=== PATIENT | male | born 1985 | race Caucasian/White ===

== ENCOUNTER 2017-09-05 14:07 | Emergency (ER) | payer BC, MEDICAID ==
[~2017-09-05] VITALS: Ht 180.3 cm; Wt 88.5 kg
[~2017-09-05 14:07] MED LIST: ADVAIR; ALBU0.632 IH; ALBU17AE23 IH; ALBU17AE3 IH; AZTH250C PO; BUDE0.5A2 IH; CEPH-507 PO; CIPR500T4 PO; CLIN-62 PO; DOXY100C2 PO; HYDR-1231 PO; HYDR-34 PO; HYDR-707 PO; IPRA3AMP19 IH; LEVO500T69 PO; METH4TAB PO; PRD20T PO; PRD50T PO; SILV25CR TP
[2017-09-05] MEDS ORDERED: BUDE10.2 IH (14:19)
[2017-09-05] MEDS ORDERED: TRIM/SULFAMETH 160/800 (SEPTRA DS) TAB PO ONE (15:30)
[2017-09-05] MEDS ORDERED: CEPHALEXIN 250 MG (KEFLEX) CAP PO ONE (15:30)
--- NOTE | 2017-09-05 16:22 | Diagnostic Imaging Report ---
Right knee at 4:28 p.m. INDICATION: Knee pain. Three views were obtained. FINDINGS: There is no fracture, dislocation or acute bony abnormality evident. The knee joint is well maintained. There may be a small joint effusion present. The soft tissues are unremarkable. IMPRESSION: 1. There is no evidence for an acute bony abnormality. 2. If there is clinical concern regarding internal derangement, then MRI would be recommended for further evaluation. Dictated by: Dictated on workstation # [id number]
[2017-09-05] MEDS ORDERED: NAPR-1071 PO (16:29)
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
[2017-09-05 16:34] VITALS: BP 125/87
== END 2017-09-05 16:34 | disposition home or self-care (01) ==
LOC: EDUNIT# 14:07 → ER 14:10
DX: M23.91 Unspecified internal derangement of right knee (principal); J45.909 Unspecified asthma, uncomplicated; Z87.828 Personal history of other (healed) physical injury and trauma
CPT/HCPCS: 73562; 99282

== ENCOUNTER → 2017-09-10 | Outpatient (CLI) | payer MEDICAID ==
[~2017-09-10] MED LIST changes: +BUDE10.2 IH; +NAPR-1071 PO
--- NOTE | 2017-09-10 17:49 | Diagnostic Imaging Report ---
PROCEDURE: MRI right joint lower extremity without contrast. TECHNIQUE: Multiplanar, multisequence non contrast-enhanced MRI of the right lower extremity was accomplished. INDICATION: Injury, knee pain. FINDINGS: There are no previous MRI examinations available for comparison. The recent plain film examination of the right knee performed on 09/05/2017 failed to show any sign of an acute abnormality. On the T2 sagittal ACR images, the anterior cruciate ligament is not visualized. I suspect that the ACL is at least partially if not completely torn. There is also some increased signal within the posterior cruciate ligament near its attachment to the distal femur. There may be a partial tear of the PCL in this area as well. In addition, the posterior horn of the medial meniscus is macerated. The mid portion of the medial meniscus has also been torn and has partially degenerated. There are also tears involving both the anterior and posterior horns of the lateral meniscus. On the coronal STIR images, there is edema about the medial collateral ligament. This would be consistent with a sprain. The MCL itself appears to be intact. The fibular collateral ligament, the biceps femoris tendon, the iliotibial band, and the medial and lateral retinacula are unremarkable for an acute abnormality. The quadriceps and infrapatellar tendons appear to be intact. There is a xxrjsmal-zc-xasip joint effusion present. There are areas of diminished signal in the subarticular regions of both the medial and lateral femoral condyle on the coronal proton dense series. These are probably secondary to long-standing osteochondral injuries. There is no abnormal signal arising from the osseous structures to suggest bone edema related to an acute fracture. IMPRESSION: 1. The poor visualization of the anterior cruciate ligament would indicate that the ACL is at least partially if not completely torn. There is also a small partial tear of the attachment of the posterior cruciate ligament to the distal femur, and there is a grade 1 sprain in the medial collateral ligament. 2. Both menisci are torn. 3. There are long-standing osteochondral injuries involving both femoral condyles, but there is no acute bony abnormality identified. 4. There is a cddexrub-bl-noucz joint effusion. Dictated by: Dictated on workstation # [id number]
== END ==
LOC: RAD 16:18
PROVIDERS: ATTEND Internal Medicine
DX: S83.512A Sprain of anterior cruciate ligament of left knee, initial encounter (principal); S83.521A Sprain of posterior cruciate ligament of right knee, initial encounter; S83.411A Sprain of medial collateral ligament of right knee, initial encounter; S83.281A Other tear of lateral meniscus, current injury, right knee, initial encounter; S83.241A Other tear of medial meniscus, current injury, right knee, initial encounter; S83.31XA Tear of articular cartilage of right knee, current, initial encounter; M25.461 Effusion, right knee
CPT/HCPCS: 73721

== ENCOUNTER 2020-05-28 17:19 | Emergency (ER) | payer MEDICAID ==
[~2020-05-28] VITALS: Ht 180.3 cm; Wt 88.4 kg
[2020-05-28 17:25] VITALS: BP 120/88
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
[2020-05-28] MEDS ORDERED: METH-313 PO (18:12)
== END 2020-05-28 18:20 | disposition home or self-care (01) ==
LOC: EDUNIT# 17:19 → ER 17:21
DX: S00.03XA Contusion of scalp, initial encounter (principal); S30.810A Abrasion of lower back and pelvis, initial encounter; R40.2410 Glasgow coma scale score 13-15, unspecified time; J45.909 Unspecified asthma, uncomplicated; Z80.9 Family history of malignant neoplasm, unspecified; V86.99XA Unspecified occupant of other special all-terrain or other off-road motor vehicle injured in nontraffic accident, initial encounter
CPT/HCPCS: 70450; 72072; 72100; 72125

== ENCOUNTER → 2020-06-07 | Outpatient (CLI) | payer MEDICAID ==
[~2020-06-07] MED LIST changes: +GADOBUTROL 10 MMOL/10 ML (GADAVIST) VIAL IV ONE; +METH-313 PO
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
== END ==
LOC: RAD 15:30
PROVIDERS: ATTEND Internal Medicine
DX: G93.9 Disorder of brain, unspecified (principal)
CPT/HCPCS: 70553

== ENCOUNTER → 2020-09-13 | Outpatient (CLI) | payer MEDICAID ==
[~2020-09-13] VITALS: Ht 180 cm; Wt 90.0 kg
[~2020-09-13] MED LIST changes: +BAMLANIVIMAB (NON FORM) 700 MG in NS (IVPB) 100 ML IV ONE; -CIPR500T4 PO; +CIPR500T5 PO; +EPINEPHrine INJECTION 1 MG/ML AMP IM PRN; -GADOBUTROL 10 MMOL/10 ML (GADAVIST) VIAL IV ONE; +diphenhydrAMINE 50 MG/ML INJ (BENADRYL) IV PRN
[2020-09-13 08:41] VITALS: BP 151/92
[2020-09-13 10:20] VITALS: BP 138/79
== END ==
LOC: INFUSION 08:43
PROVIDERS: ATTEND Internal Medicine
DX: Z23 Encounter for immunization (principal); U07.1 COVID-19

== ENCOUNTER 2023-03-17 21:14 | Observation (INO) | payer OTHER, MEDICAID ==
[~2023-03-17] VITALS: Ht 177 cm; Wt 93.0 kg
[~2023-03-17 21:14] MED LIST changes: -BAMLANIVIMAB (NON FORM) 700 MG in NS (IVPB) 100 ML IV ONE; -EPINEPHrine INJECTION 1 MG/ML AMP IM PRN; -diphenhydrAMINE 50 MG/ML INJ (BENADRYL) IV PRN
[2023-03-17] MEDS ORDERED: ONDANSETRON INJECTION 4 MG/2 ML (SDV) IVP ONE (21:30)
[2023-03-17] MEDS ORDERED: NS IV 1000 ML 1,000 ML IV SCH (21:30)
[2023-03-17] MEDS ORDERED: Tetanus/Diphtheria/Pertussis (Acell) ADULT Vaccine 0.5 ML IM ONE (21:30)
[2023-03-17] MEDS ORDERED: fentaNYL INJECTION 100 MCG/2 ML VIAL IVP ONE (21:30)
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
[2023-03-17 21:41] LABS: HEMATOCRIT 48 % (40-54); HEMOGLOBIN 16.7 g/dL (13.3-17.7); MEAN CORPUSCULAR HEMOGLOBIN 32 pg (25-34); MEAN CORPUSCULAR HGB CONC 35 g/dL (32-36); MEAN CORPUSCULAR VOLUME 90 fL (80-99); MEAN PLATELET VOLUME 9.9 fL (9.0-12.2); PLATELET COUNT 280 10^3/uL (130-400); WHITE BLOOD COUNT 13.6 10^3/uL (4.3-11.0)
[2023-03-17] MEDS ORDERED: IOHEXOL 350 MG/ML 100 ML (OMNIPAQUE 350) VIAL IV ONE (21:45)
[2023-03-17] MEDS ORDERED: HOLD METFORMIN - RECEIVED CONTRAST 20 ML VIAL IV SCH (21:45)
[2023-03-17] MEDS ORDERED: NS 100 ML (IVPB) BAG IV ONE (21:45)
[2023-03-17 21:46] LABS: ALBUMIN 4.2 GM/DL (3.2-4.5); CHLORIDE 104 MMOL/L (98-107); POTASSIUM 3.6 MMOL/L (3.6-5.0); SODIUM 140 MMOL/L (135-145)
[2023-03-17 21:47] LABS: CALCIUM 9.2 MG/DL (8.5-10.1)
[2023-03-17 21:49] LABS: GLUCOSE 116 MG/DL (70-105); TOTAL PROTEIN 6.8 GM/DL (6.4-8.2)
[2023-03-17 21:50] LABS: BILIRUBIN,TOTAL 1.1 MG/DL (0.1-1.0); CARBON DIOXIDE 23 MMOL/L (21-32)
[2023-03-17 21:52] LABS: ALKALINE PHOSPHATASE 118 U/L (40-136); CREATININE SERUM 1.18 MG/DL (0.60-1.30); GFR ESTIMATED 82
[2023-03-17 21:53] LABS: BUN/CREATININE RATIO 12
[2023-03-17 21:55] LABS: ALANINE AMINOTRANSFERASE 58 U/L (0-55); BILIRUBIN,DIRECT 0.3 MG/DL (0.0-0.3); BILIRUBIN,INDIRECT 0.8 MG/DL
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
[2023-03-17] MEDS ORDERED: ceFAZolin INJECTION 2,000 MG in NS (IVPB) 50 ML 50 ML IV ONE (22:30)
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
[2023-03-17] MEDS ORDERED: morphine INJ 4 MG/ML 1 ML (VIAL/SYRINGE) ONE (23:45)
[2023-03-17] MEDS ORDERED: morphine INJ 4 MG/ML 1 ML (VIAL/SYRINGE) IVP ONE (23:45)
[2023-03-18] MEDS ORDERED: LIDOCAINE 2% VISCOUS 15 ML UDC ONE (01:22)
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
[2023-03-18] MEDS ORDERED: LIDOCAINE 2% VISCOUS 15 ML UDC MM ONE (02:30)
[2023-03-18] MEDS ORDERED: morphine INJ 4 MG/ML 1 ML (VIAL/SYRINGE) IVP ONE (02:45)
[2023-03-18] MEDS ORDERED: ONDANSETRON INJECTION 4 MG/2 ML (SDV) IV PRN (04:00)
[2023-03-18] MEDS ORDERED: diphenhydrAMINE INJ 50 MG/ML VIAL IV PRN (04:00)
[2023-03-18] MEDS: fentaNYL INJECTION 100 MCG/2 ML VIAL IVP PRN ×3 (04:05→22:17)
[2023-03-18 04:13] VITALS: BP 98/78
[2023-03-18] MEDS: NS IV 1000 ML 1,000 ML IV SCH ×2 (04:29→14:33)
[2023-03-18] MEDS ORDERED: NS IV 500 ML 500 ML IV PRN (04:30)
[2023-03-18] MEDS ORDERED: RT-ALBUTEROL SULF 2.5 MG/3 ML PRE-MIX VIAL INH PRN (04:30)
[2023-03-18 05:15] LABS: BASOPHILS % (AUTO) 0 % (0-10); EOSINOPHILS % (AUTO) 0 % (0-10); HEMATOCRIT 43 % (40-54); HEMOGLOBIN 14.9 g/dL (13.3-17.7); LYMPHOCYTES # (AUTO) 0.9 10^3/uL (1.0-4.0); LYMPHOCYTES % (AUTO) 5 % (12-44); MEAN CORPUSCULAR HEMOGLOBIN 31 pg (25-34); MEAN CORPUSCULAR HGB CONC 35 g/dL (32-36); MEAN CORPUSCULAR VOLUME 90 fL (80-99); MEAN PLATELET VOLUME 10.3 fL (9.0-12.2); MONOCYTES # (AUTO) 1.3 10^3/uL (0.0-1.0); MONOCYTES % (AUTO) 8 % (0-12); NEUTROPHILS # (AUTO) 13.9 10^3/uL (1.8-7.8); NEUTROPHILS % (AUTO) 86 % (42-75); PLATELET COUNT 218 10^3/uL (130-400); WHITE BLOOD COUNT 16.2 10^3/uL (4.3-11.0)
[2023-03-18 05:28] LABS: ALBUMIN 3.8 GM/DL (3.2-4.5); BILIRUBIN,TOTAL 1.9 MG/DL (0.1-1.0); CALCIUM 8.5 MG/DL (8.5-10.1); CREATININE SERUM 1.13 MG/DL (0.60-1.30); MAGNESIUM 1.5 MG/DL (1.6-2.4); PHOSPHORUS 2.7 MG/DL (2.3-4.7); POTASSIUM 4.3 MMOL/L (3.6-5.0)
[2023-03-18] MEDS: POTASSIUM CL 10MEQ/50ML IVPB 50 ML IV SCH (05:38)
[2023-03-18] MEDS: MAGNESIUM 1 GM/100 ML IVPB 100 ML IV SCH ×5 (05:39→08:38)
[2023-03-18] MEDS: POTASSIUM CHLORIDE 20 MEQ TABLET PO SCH (05:39)
[2023-03-18] MEDS: ceFAZolin 1,000 MG VIAL IV SCH ×3 (06:23→22:04)
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
[2023-03-18] MEDS: morphine INJ 4 MG/ML 1 ML (VIAL/SYRINGE) IV PRN ×2 (07:51→19:56)
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
--- NOTE | 2023-03-18 08:37 | Diagnostic Imaging Report ---
INDICATION: Fractures. 3 view ankle performed FINDINGS: There are fractures of the talus extending intra-articular into the posterior subtalar joint. There appears to be a fracture of the anterior process of the calcaneus. There is avulsion off the lateral cortex of the distal fibula. There is likely an avulsion off the lateral process of the talus. The medial and posterior malleoli intact. The talar dome appeared intact. There is diffuse swelling about the ankle. IMPRESSION: Talar and calcaneal fractures with distal fibular cortical avulsion, soft tissue swelling, no widening of the mortise. Findings have been further evaluated at separately performed ankle CT. Dictated by: Dictated on workstation # [id number]
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
[2023-03-18] MEDS ORDERED: PANTOPRAZOLE INJECTION 40 MG VIAL IV SCH (09:00)
[2023-03-18] MEDS: RT-ALBUTEROL SULF 2.5 MG/3 ML PRE-MIX VIAL INH SCH ×2 (09:10→21:28)
[2023-03-18] MEDS: DOCUSATE SODIUM 100 MG CAPSULE PO SCH ×2 (09:15→22:47)
[2023-03-18] MEDS ORDERED: ACETAMINOPHEN 500 MG TABLET PO PRN (10:15)
[2023-03-18] MEDS ORDERED: BUDE10.26 INH (10:26)
[2023-03-18] MEDS ORDERED: ACET325T38 PO (10:26)
[2023-03-18] MEDS ORDERED: RT-ALBUINH INH (10:26)
[2023-03-18] MEDS ORDERED: CETI10TA49 PO (10:26)
[2023-03-18] MEDS: HYDROcodone/ACETAMINOPHEN 7.5 MG/325 MG TABLET PO PRN (14:02)
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
[2023-03-18] MEDS ORDERED: HYDR-3817 PO (16:47)
--- NOTE | 2023-03-18 16:49 | Discharge Inst-Surgical ---
D/C Lap Instructions-BERNADETTE New, Converted, or Re-Newed RX: RX on Chart Follow Up 2weeks Follow up cxr approximately 1 week. Activity as tolerated No driving for 24 hours No driving while on pain medications Incentive Spirometry use every 2 hours while awake Regular Diet Symptoms to Report: Fever over 101 degree F, Nausea/Vomiting Infection Signs and Symptoms to report: Increased redness, Foul odor of wound, Increased drainage Bathing instructions: May shower Operative Area Clean/Dry; Keep incision clean/dry If any problems/questions: Contact your physician or go to Emergency Room PAPITO FLEMING MD Mar 18, 2023 16:48
[2023-03-18 19:48] VITALS: BP 135/87
[2023-03-19 00:10] VITALS: BP 123/70
[2023-03-19] MEDS: morphine INJ 4 MG/ML 1 ML (VIAL/SYRINGE) IV PRN (00:21)
[2023-03-19] MEDS: RT-ALBUTEROL SULF 2.5 MG/3 ML PRE-MIX VIAL INH SCH ×2 (03:44→09:25)
[2023-03-19 04:15] VITALS: BP 130/81
[2023-03-19] MEDS: HYDROcodone/ACETAMINOPHEN 7.5 MG/325 MG TABLET PO PRN ×3 (04:30→15:18)
[2023-03-19 06:01] LABS: BASOPHILS % (AUTO) 0 % (0-10); EOSINOPHILS # (AUTO) 0.4 10^3/uL (0.0-0.3); EOSINOPHILS % (AUTO) 3 % (0-10); HEMATOCRIT 41 % (40-54); HEMOGLOBIN 14.3 g/dL (13.3-17.7); LYMPHOCYTES # (AUTO) 1.1 10^3/uL (1.0-4.0); LYMPHOCYTES % (AUTO) 9 % (12-44); MEAN CORPUSCULAR HEMOGLOBIN 31 pg (25-34); MEAN CORPUSCULAR HGB CONC 35 g/dL (32-36); MEAN CORPUSCULAR VOLUME 90 fL (80-99); MEAN PLATELET VOLUME 10.2 fL (9.0-12.2); MONOCYTES # (AUTO) 1.1 10^3/uL (0.0-1.0); MONOCYTES % (AUTO) 9 % (0-12); NEUTROPHILS # (AUTO) 9.9 10^3/uL (1.8-7.8); NEUTROPHILS % (AUTO) 79 % (42-75); PLATELET COUNT 175 10^3/uL (130-400); WHITE BLOOD COUNT 12.5 10^3/uL (4.3-11.0)
[2023-03-19 06:12] LABS: ALBUMIN 3.7 GM/DL (3.2-4.5); POTASSIUM 3.8 MMOL/L (3.6-5.0)
[2023-03-19 06:13] LABS: CALCIUM 8.6 MG/DL (8.5-10.1)
[2023-03-19 06:15] LABS: TOTAL PROTEIN 6.1 GM/DL (6.4-8.2)
[2023-03-19 06:17] LABS: BILIRUBIN,TOTAL 2.2 MG/DL (0.1-1.0)
[2023-03-19 06:18] LABS: PHOSPHORUS 2.3 MG/DL (2.3-4.7)
[2023-03-19] MEDS: ceFAZolin 1,000 MG VIAL IV SCH ×2 (06:18→14:15)
[2023-03-19 06:19] LABS: CREATININE SERUM 0.93 MG/DL (0.60-1.30)
[2023-03-19] MEDS: POTASSIUM CL 10MEQ/50ML IVPB 50 ML IV SCH (06:23)
[2023-03-19] MEDS: MAGNESIUM 1 GM/100 ML IVPB 100 ML IV SCH (06:25)
[2023-03-19] MEDS: POTASSIUM CHLORIDE 20 MEQ TABLET PO SCH (06:33)
[2023-03-19] MEDS ORDERED: POTASSIUM CHLORIDE 20 MEQ TABLET PO NR (07:00)
[2023-03-19 07:13] VITALS: BP 131/79
[2023-03-19 07:48] VITALS: BP 180/98
--- NOTE | 2023-03-19 08:03 | Physical Therapy Daily Note ---
PT Daily Note-Current Subjective Patient agrees to PT. Spouse present. Pain Section J - Health Conditions 1. Rarely or not at all 2. Occasionally 3. Frequently 4. Almost constantly 8. Unable to answer Pain Effect on Sleep: 1 Pain Interference with Therapy: 1 Pain Interference w/Day-to-Day: 1 Mental Status Patient Orientation: Normal For Age Transfers SCALE: Activities may be completed with or without assistive devices. 1-Rmqzoqvxjv-owmpsxd completes the activity by him/herself with no assistance from a helper. 5-Set-up or Clean-up Assistance-helper sets up or cleans up; patient completes activity. Galt assists only prior to or following the activity. 4-Supervision or Touching Assistance-helper provides verbal cues and/or touching/steadying and/or contact guard assistance as patient completes activity. Assistance may be provided throughout the activity or intermittently. 3-Partial/Moderate Assistance-helper does LESS THAN HALF the effort. Galt lifts, holds or supports trunk or limbs, but provides less than half the effort. 2-Substantial/Maximal Assistance-helper does MORE THAN HALF the effort. Galt lifts or holds trunk or limbs and provides more than half the effort. 8-Fmezetfqw-ynisxm does ALL the effort. Patient does none of the effort to complete the activity. Or, the assistance of 2 or more helpers is required for the patient to complete the activity. If activity was not attempted, code reason: 7-Patient Refused. 9-Not Applicable-not attempted and the patient did not perform the activity before the current illness, exacerbation or injury. 10-Not Attempted due to Environmental Limitations-(lack of equipment, weather restraints, etc.). 88-Not Attempted due to Medical Conditions or Safety Concerns. Lying to Sitting/Side of Bed(Q: 3 Sit to Stand (QC): 4 Weight Bearing Right Lower Extremity: Right Non Weight Bearing Left Lower Extremity: Left Weight Bearing/Tolerated Gait Training Distance: 180' Walk 10 feet (QC): 4 Walk 50 ft with 2 Turns(QC): 4 Walk 150 ft (QC): 4 Gait Assistive Device: Crutches able to maintain NWB right LE without difficulty Stair Training #of Steps: 1 1 Step (curb) (QC): 4 Stairs: Pattern: Hops with use of crutches Assessment Patient tolerated treatment well. PT to dismiss patient from services at this time. Patient is SBA to modified independent with all mobility safely. Patient reports they will utilize FWW and w/c upon returning to home. 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 Time Frame: Apr 24, 2023 Roll Left & Right (QC): 5 Sit to Lying (QC): 5 Lying-Sitting on Side/Bed(QC): 5 Sit to Stand (QC): 5 Chair/Ifh-hk-Vooio Xfer(QC): 5 Toilet Transfer (QC): 5 Does the Patient Walk: Yes Walk 10 feet (QC): 6 Walk 50ft with 2 Turns (QC): 6 Walk 150 ft (QC): 6 1 Step (curb) (QC): 3 4 Steps (QC): 3 12 Steps (QC): 3 PT Plan Treatment/Plan Treatment Plan: Discontinue PT Treatment Plan: Bed Mobility, Education, Functional Activity Irvin, Functional Strength, Group Therapy, Gait, Safety, Therapeutic Exercise, Transfers Treatment Duration: Apr 24, 2023 Frequency: 6 times per week Patient and/or Family Agrees t: Yes Time Time In: 730 Time Out: 753 DATE: Mar 19, 2023 Total Billed Treatment Time: 23 Total Billed Treatment 1 visit FA 9 min GT 14 min EDISON VASQUES PT Mar 19, 2023 08:02
[2023-03-19] MEDS ORDERED: PANTOPRAZOLE 40 MG TABLET PO SCH (09:00)
[2023-03-19] MEDS: DOCUSATE SODIUM 100 MG CAPSULE PO SCH (09:02)
--- NOTE | 2023-03-19 09:33 | Diagnostic Imaging Report ---
INDICATION: Left rib fractures, follow-up Frontal chest obtained at 0628 a.m. and compared to 03/17/2023. Heart and mediastinal silhouette are normal in appearance. The lungs are clear. There is no pneumothorax or pleural fluid. IMPRESSION: Continued negative chest. Dictated by: Dictated on workstation # [id number]
[2023-03-19 11:04] VITALS: BP 127/78
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
[2023-03-19] MEDS ORDERED: CEPH500T PO (13:27)
== END 2023-03-19 16:40 | disposition home or self-care (01) ==
LOC: EDUNIT# 21:14 → ER 21:17 → ICU 03-18 03:30 → 4TH 03-18 15:26
PROVIDERS: ADMIT Surgery; ATTEND Surgery
DX: S82.001A Unspecified fracture of right patella, initial encounter for closed fracture (principal); S92.141A Displaced dome fracture of right talus, initial encounter for closed fracture; S92.001A Unspecified fracture of right calcaneus, initial encounter for closed fracture; S50.812A Abrasion of left forearm, initial encounter; S60.512A Abrasion of left hand, initial encounter; S80.212A Abrasion, left knee, initial encounter; S80.211A Abrasion, right knee, initial encounter; S22.32XA Fracture of one rib, left side, initial encounter for closed fracture; V29.888A Rider (driver) (passenger) of other motorcycle injured in other specified transport accidents, initial encounter; F17.210 Nicotine dependence, cigarettes, uncomplicated; F12.90 Cannabis use, unspecified, uncomplicated; Y93.55 Activity, bike riding; Z28.310 Unvaccinated for COVID-19
CPT/HCPCS: 29515; 70450; 70498; 71045 ×2; 71260; 73562; 73610; 73630; 73700; 74177; 80048; 80053 ×2; 80076; 83735 ×2; 84100 ×2; 84484 ×2; 85025 ×2; 85027; 86850; 86900; 86901; 87081; 93005; 93041; 94640 ×2; 94664; 94760 ×2; 97116; 97162; 97530 ×2; 99284; G0480; L1830; 36415; 80320; 90715; 96366; 96375; 96376; G0378

== ENCOUNTER → 2023-03-24 | Outpatient (CLI) | payer OTHER, MEDICAID ==
[~2023-03-24] MED LIST changes: +ACET325T38 PO; +BUDE10.26 INH; +CEPH500T PO; +CETI10TA49 PO; +HYDR-3817 PO; +RT-ALBUINH INH
== END ==
LOC: ORTHO 09:31
PROVIDERS: ATTEND Orthopaedic Surgery
DX: S82.001D Unspecified fracture of right patella, subsequent encounter for closed fracture with routine healing (principal); X58.XXXD Exposure to other specified factors, subsequent encounter
CPT/HCPCS: 99213

== ENCOUNTER 2023-03-25 05:32 | Outpatient (CLI) | payer OTHER, MEDICAID ==
[~2023-03-25] VITALS: Ht 180.3 cm; Wt 88.5 kg
== END 2023-03-25 10:36 | disposition home or self-care (01) ==
LOC: PREOP 05:32
PROVIDERS: ATTEND Orthopaedic Surgery
DX: Z01.818 Encounter for other preprocedural examination (principal)

== ENCOUNTER 2023-03-30 09:38 | Day surgery (SDC) | payer OTHER, MEDICAID ==
[~2023-03-30] VITALS: Ht 180 cm; Wt 88.5 kg
[2023-03-30] VITALS (13 sets, daily range): BP systolic 127–142; BP diastolic 81–95
[2023-03-30] MEDS ORDERED: ceFAZolin INJECTION 2,000 MG in NS (IVPB) 50 ML 50 ML IV ONE (10:00)
[2023-03-30] MEDS ORDERED: fentaNYL INJECTION 100 MCG/2 ML VIAL ONE ×2 (10:03→11:32)
[2023-03-30] MEDS ORDERED: MIDAZOLAM INJ 2 MG/2 ML VIAL ONE (10:03)
[2023-03-30] MEDS ORDERED: ROPIVACAINE 5 MG/ML 30ML VIAL ONE (10:04)
[2023-03-30] MEDS ORDERED: LIDOCAINE PF 2% 5 ML VIAL ONE (10:04)
[2023-03-30] MEDS: LACTATED RINGERS 1,000 ML 1,000 ML IV PRN ×3 (10:09→13:31)
--- NOTE | 2023-03-30 10:51 | Progress Note-Pre Operative ---
Pre-Operative Progress Note Date of Available H&P: Mar 24, 2023 Date H&P Reviewed: Mar 30, 2023 Time H&P Reviewed: 10:40 History & Physical: H&P Reviewed, Patient Examed, No changes noted Pre-Operative Diagnosis: Right Patella Fracture EZE GRIMES MD Mar 30, 2023 10:51
[2023-03-30] MEDS ORDERED: dexAMETHasone INJ 10 MG/ML 1 ML VIAL ONE (11:08)
[2023-03-30] MEDS ORDERED: proPOfol INJECTION 200 MG/20 ML VIAL IV ONE (11:08)
[2023-03-30] MEDS ORDERED: ONDANSETRON INJECTION 4 MG/2 ML (SDV) ONE (11:08)
[2023-03-30] MEDS ORDERED: HYDROmorphone INJECTION 2 MG/ML VIAL ONE (12:02)
[2023-03-30] MEDS ORDERED: SEVOFLURANE (ULTANE) 15 ML INHAL SOLN ONE (12:55)
[2023-03-30] MEDS ORDERED: MEPERIDINE INJ 50 MG/ML VIAL ONE (13:02)
--- NOTE | 2023-03-30 13:28 | Anesthesia-General Post-Op ---
General Patient Condition Mental Status/LOC: Same as Preop Cardiovascular: Satisfactory Nausea/Vomiting: Absent Respiratory: Satisfactory Pain: Controlled Complications: Absent Post Op Complications Complications None Follow Up Care/Instructions Patient Instructions None needed. Anesthesia/Patient Condition Patient Condition Patient is doing well, no complaints, stable vital signs, no apparent adverse anesthesia problems. No complications reported per nursing. MAT AKHTAR CRNA Mar 30, 2023 13:28
[2023-03-30] MEDS ORDERED: HYDROmorphone INJECTION 2 MG/ML VIAL IV ONE (13:30)
[2023-03-30] MEDS ORDERED: ONDANSETRON INJECTION 4 MG/2 ML (SDV) IVP PRN (13:30)
[2023-03-30] MEDS ORDERED: HYDR-34 PO (13:32)
--- NOTE | 2023-03-30 13:40 | Operative Report - Ortho ---
Operative Report Surgeon (s)/Test Worker (s) Surgeon EZE GRIMES MD Test Worker n/a Pre-Operative Diagnosis Right Patella Fracture Post-Operative Diagnosis same Operative Report Date of Procedure: Mar 30, 2023 Name of Procedure Performed: Open Reduction and Internal Fixation of Right Patella Fracture Description & Findings After obtaining informed consent and marking the patient in the preoperative holding area, patient did receive IV antibiotics. Patient was taken to the operating room. General anesthesia was induced. Surgical timeout was taken. The right lower extremity was prepped and draped in the usual sterile fashion. Midline incision was made. Hematoma was evacuated. Pulsatile lavage was used to irrigate the joint. Rongeur was used to debride the fractured edges of the patella. 2 K-wires were driven through the proximal fragment. Patella fracture was reduced using a tenaculum. K-wires were driven into the distal segment. 18 gauge wire was then passed around the K-wires in figure of 8 fashion. C-arm was used to confirm position of the wires and reduction of the articular surface of the patella. Figure of 8 wire was then tensioned in 2 locations. Once wire was tensioned, K-wires were bent, cut, and tamped. The knotted areas of the wire were cut and tamped. Final C-arm images were obtained and sent to PACS; had maintained reduction and appropriate position of the hardware. #2 Fiberwire was used to repair torn retinaculum. 2-0 vicryl was used to repair the subcutaneous layer. Jaylon were use in the skin. Wound was dressed with xeroform, 4x4s, ABD, cast padding, and rupa wrap. Knee immobilizer was placed. Short leg splint was replaced on foot and ankle for continued nonoperative treatment of fractures. Patient tolerated the procedure well and was stable to the recovery room. Anesthesia Type General Estimated Blood Loss 200 mL Specimen(s) collected/removed None EZE GRIMES MD Mar 30, 2023 13:40
[2023-03-30] MEDS ORDERED: HYDROcodone/ACETAMINOPHEN 7.5 MG/325 MG TABLET PO ONE (15:00)
--- NOTE | 2023-03-30 16:28 | Diagnostic Imaging Report ---
Indication: Patellar fracture Intraoperative fluoroscopy views were obtained with the portable intensifier during ORIF patellar fracture. 73.9 seconds of fluoroscopy time was used. 2 views are obtained Intraoperative views demonstrate pins and wires in place across the patellar fracture with near-anatomic alignment. The patient has had a previous ACL repair. IMPRESSION: Intraoperative views demonstrate ORIF of patellar fracture with near-anatomic alignment. Dictated by: Dictated on workstation # [id number]
== END 2023-03-30 16:00 | disposition home health service (06) ==
LOC: SDC 09:38
PROVIDERS: ATTEND Orthopaedic Surgery
DX: S82.031A Displaced transverse fracture of right patella, initial encounter for closed fracture (principal); V29.888A Rider (driver) (passenger) of other motorcycle injured in other specified transport accidents, initial encounter; F17.210 Nicotine dependence, cigarettes, uncomplicated; Z28.310 Unvaccinated for COVID-19
CPT/HCPCS: 76000; 87081

== ENCOUNTER → 2023-04-06 | Outpatient (CLI) | payer OTHER, MEDICAID | LOC: ORTHO 15:14 | PROVIDERS: ATTEND Orthopaedic Surgery | DX: Z47.89 Encounter for other orthopedic aftercare (principal) ==

== ENCOUNTER → 2023-04-13 | Outpatient (CLI) | payer OTHER, MEDICAID | LOC: ORTHO 09:55 | PROVIDERS: ATTEND Orthopaedic Surgery | DX: Z47.89 Encounter for other orthopedic aftercare (principal) ==

== ENCOUNTER → 2023-04-28 | Outpatient (CLI) | payer OTHER, MEDICAID ==
--- NOTE | 2023-04-28 10:47 | Diagnostic Imaging Report ---
INDICATION: Postop right knee. TIME OF EXAM: 10:28 AM 2 views right knee demonstrate postop changes from an ACL repair. There is also 2 K wires and cerclage wires transfixing patellar fracture. A patellar fracture line remains visible. No significant joint effusion is seen. No new fractures detected. IMPRESSION: Postoperative changes of the patellar ORIF. Fracture line does remain partially visible. Dictated by: Dictated on workstation # [id number]
--- NOTE | 2023-04-28 10:54 | Diagnostic Imaging Report ---
INDICATION: Right ankle fracture, follow-up. TIME OF EXAM: 10:24 a.m. COMPARISON: Correlation is made to prior exam from 03/17/2023. FINDINGS: Ankle alignment is normal. Ankle mortise is well maintained. Talar dome is smooth. Avulsion fracture of the distal fibula as well as probable avulsion of the lateral process of the talus is again noted. There is some increasing ossification at the level of the distal fibula. There is some mild lateral ankle soft tissue swelling. Talar fracture as well as the anterior process calcaneus fracture is not as well visualized on today's study, consistent with some healing. IMPRESSION: Ankle fractures alignment appear anatomic. There appear to be healing fractures with blurring of previously noted fracture lines between the talus and the calcaneus. Avulsions of the distal fibula and lateral process talus appear stable. Dictated by: Dictated on workstation # [id number]
== END ==
LOC: ORTHO 10:15
PROVIDERS: ATTEND Orthopaedic Surgery
DX: Z09 Encounter for follow-up examination after completed treatment for conditions other than malignant neoplasm (principal); S82.891D Other fracture of right lower leg, subsequent encounter for closed fracture with routine healing; T14.8XXA Other injury of unspecified body region, initial encounter; X58.XXXD Exposure to other specified factors, subsequent encounter
CPT/HCPCS: 73560; 73610

== ENCOUNTER → 2023-06-01 | Outpatient (CLI) | payer OTHER, MEDICAID ==
--- NOTE | 2023-06-01 14:03 | Diagnostic Imaging Report ---
INDICATION: Postoperative check EXAMINATION: Right ankle 06/01/2023 COMPARISON: 04/28/2023, 03/17/2023 FINDINGS: 3 views of the foot. The previously noted talar and calcaneal fractures demonstrate changes of healing. Large osseous process is seen inferior or distal to the lateral border of the talus consistent with a healing osseous fracture fragment. Adjacent more rounded loose body demonstrates increased peripheral cortication since previous imaging. There are no new fractures. No dislocations. Ankle mortise appears to be intact. Residual soft tissue swelling noted. IMPRESSION: 1. Continued healing of the known talar and calcaneal fractures with osseous fragments about the distal fibula as noted above. Dictated by: Dictated on workstation # [id number]
--- NOTE | 2023-06-01 15:08 | Diagnostic Imaging Report ---
EXAMINATION: Right knee two views. HISTORY: Postoperative exam. COMPARISON: 04/28/2023 FINDINGS: There has been open reduction internal fixation of the right patella. Alignment is unchanged. There is overlying soft tissue swelling. Moderate effusion. There has been an anterior cruciate ligament reconstruction. No dislocation. No acute fracture. IMPRESSION: 1. Unchanged alignment of a reduced and internally fixated right patellar fracture. Dictated by: Dictated on workstation # [id number]
== END ==
LOC: ORTHO 09:54
PROVIDERS: ATTEND Orthopaedic Surgery
DX: Z47.89 Encounter for other orthopedic aftercare (principal)
CPT/HCPCS: 73560; 73610